=== PATIENT | male | born 1940 | race Caucasian/White ===

== ENCOUNTER 2017-09-14 15:34 | Inpatient (IN) ==
[2017-09-20] MEDS ORDERED: traZODone 50 MG TABLET PO PRN (18:26)
[2017-09-20] MEDS ORDERED: Acetaminophen 325 MG TABLET PO PRN (18:26)
[2017-09-20] MEDS ORDERED: *HR* Warfarin 2 MG TABLET PO ONE (19:00)
[2017-09-20] MEDS: Gabapentin 100 MG CAPSULE PO SCH (20:09)
[2017-09-20] MEDS: Cholecalciferol (D-3) 1,000 UNIT TABLET PO SCH (20:09)
[2017-09-20] MEDS: Ipratropium/Albuterol Neb 3 ML IH SCH ×2 (20:09→23:28)
[2017-09-20] MEDS: sulfaSALAzine 500 MG TABLET PO SCH (20:09)
[2017-09-20] MEDS: Furosemide 40 MG TABLET PO SCH (20:21)
[2017-09-21] MEDS: Ipratropium/Albuterol Neb 3 ML IH SCH ×4 (03:08→17:25)
[2017-09-21 05:54] LABS: Basophils % 0.1 %; Eosinophils # 0.1 K/mcL (0.0-0.6); Eosinophils % 1.1 %; Hematocrit 41.6 % (37.5-50.1); Hemoglobin 13.2 g/dL (12.9-16.9); Immature Granulocytes % 0.8 % (0-4); Lymphocytes # 1.4 K/mcL (0.6-4.6); Lymphocytes % 13.7 %; Mean Corpuscular HGB Conc 31.7 g/dL (31.6-35.5); Mean Corpuscular Hemoglobin 30.1 pg (28.0-33.3); Mean Platelet Volume 9.5 fL (9.4-12.4); Monocytes # 1.2 K/mcL (0.0-1.3); Monocytes % 11.3 %; Neutrophils # 7.5 K/mcL (1.6-8.9); Nucleated Red Blood Cells 0.2 /100 WBC (0); Platelet Count 139 K/mcL (140-400); Red Blood Count 4.38 M/mcL (4.19-5.50); Red Cell Distribution Width 20.1 % (11.5-14.5)
[2017-09-21 06:01] LABS: INR 2.5; Prothrombin Time 28.5 Seconds (9.4-12.1)
[2017-09-21 06:04] LABS: Activated Partial Thrombo Time 36.2 Seconds (26.0-36.0)
[2017-09-21 06:11] LABS: Alanine Aminotransferase 29 Units/L (7-52); Albumin 2.7 g/dL (3.5-5.7); Albumin/Globulin Ratio 1.1 (1.1-2.2); Alkaline Phosphatase 91 Units/L (34-104); Aspartate Amino Transferase 28 Units/L (13-39); BUN/Creatinine Ratio 27 (6-26); Blood Urea Nitrogen 34 mg/dL (8-23); Calcium 8.2 mg/dL (8.6-10.3); Carbon Dioxide 37 mEq/L (23-29); Chloride 98 mEq/L (98-107); Globulin 2.5 g/dL (2.4-3.5); Glucose 115 mg/dL (70-105); Osmolality,Calculated 299 (280-300); Potassium 3.3 mEq/L (3.5-5.1); Sodium 140 mEq/L (136-145); Total Protein 5.2 g/dL (6.4-8.9); eGFR For Non-African Americans 57 (> 60)
[2017-09-21] MEDS: Multivit/Ca/Min/Fe/FA 1 TAB TABLET PO SCH (09:09)
[2017-09-21] MEDS: Vitamin B Complex/Vit C/Vit E 1 EACH TABLET PO SCH (09:09)
[2017-09-21] MEDS: Furosemide 40 MG TABLET PO SCH ×2 (09:09→17:12)
[2017-09-21] MEDS: Aspirin 81 MG TAB.CHEW PO SCH (09:09)
[2017-09-21] MEDS: sulfaSALAzine 500 MG TABLET PO SCH ×2 (09:09→21:27)
[2017-09-21] MEDS: Folic Acid 1 MG TABLET PO SCH (09:09)
[2017-09-21] MEDS: Cholecalciferol (D-3) 1,000 UNIT TABLET PO SCH (09:09)
[2017-09-21] MEDS: *HR* Amiodarone 200 MG TABLET PO SCH (09:09)
--- NOTE | 2017-09-21 15:01 | Internal Med History&Physical ---
Date of Encounter: 09/21/17 Time of Encounter: 14:59 Assessment and Plan (1) General weakness Current visit: Yes Status: Acute PT and OT to eval and treat. Will follow progress. Goal to return to home. (2) Atrial fibrillation with RVR Current visit: Yes Status: Chronic Rate and rhythm controlled. Continue Coumadin. Follow INR closely. Underwent recent cardioversion (3) CHF (congestive heart failure) Current visit: Yes Status: Suspected Currently stable. Monitor for decompensation. Continue current medication. Qualifiers: Heart failure type: combined systolic and diastolic Heart failure chronicity: acute on chronic Qualified Code(s): I50.43 - Acute on chronic combined systolic (congestive) and diastolic (congestive) heart failure (4) DVT prophylaxis Current visit: Yes Status: Acute Continue Coumadin. (5) HTN (hypertension) Current visit: Yes Status: Chronic Stable with current medication. Monitor blood pressure. Qualifiers: Hypertension type: unspecified Qualified Code(s): I10 - Essential (primary ) hypertension (6) COPD (chronic obstructive pulmonary disease) Current visit: Yes Status: Chronic Continue inhaled meds. Continue oxygen. Will try to wean down to 2 L at hs. Monitor O2 sat. Qualifiers: COPD type: unspecified COPD Qualified Code(s): J44.9 - Chronic obstructive pulmonary disease, unspecified (7) Chronic venous stasis dermatitis of both lower extremities Current visit: Yes Status: Chronic monitor Internal Medicine - H&P: HPI Admitted From: Hospital to Hospital Transfer Plans for Post Hospital Care: Home History of present illness: Mr. Pickens is a 77 year old male admitted to rehab for general weakness after being hospitalized at [facility]. Presenting their to the emergency room of progressing weakness in shortness of breath. Had swelling of scrotum and lower legs. Past medical history includes COPD, chronic respiratory failure , coronary artery disease, atrial fibrillation with RVR, renal disease, rheumatoid arthritis, CHF and AAA. Ejection fraction as of October 2016 was 55%. Uses supplemental oxygen occasionally at home at 4 L per minute. Has had recent falls over the past few months. Currently resting in bed but participated with therapy earlier and became shortness of breath with exertion. O2 sats in the upper 80%. Did recover with rest. Denies chest pain, shortness of breath at rest, fever, chills, nausea, vomiting or diarrhea. Was treated recently for pneumonia with 70course of Rocephin and doxycycline. Past Med Surg Social Fam HX - Past Medical History Medical history: aortic aneurysm, arthritis, CHF, COPD, coronary artery disease , RA, renal disease Additional medical history: hydrocele Psychiatric history: no psych history - Past Surgical History Surgical History: non-contributory Additional surgical history: AAA repair - Social History Smoking Status: Former smoker Smokeless Tobacco Status: No Alcohol use: none Drug use: none - Family History Father Family Member Ethnicity: Non- Living Status: Hx Family Endocrine Disorder: Yes (DM) Mother Family Member Ethnicity: Non- Living Status: Hx Family Endocrine Disorder: Yes (DM) Brother Family Member Ethnicity: Non- Living Status: Still Living Sister Family Member Ethnicity: Non- Living Status: Still Living Son Adopted: No Family Member Ethnicity: Non- Living Status: Still Living Hx Family Cardiac Disorders: No Hx Family Respiratory Disorders: No Hx Family Cancer: Yes Hx Family GI Disorders: No Hx Family Endocrine Disorder: No Hx Family Neuromuscular Disorders: No Hx Family Neurologic Disorders: No Hx Family HEENT Disorders: No Hx Family Autoimmune Disorders: No Internal Medicine - H&P: Meds Aspirin 81 mg PO DAILY #0 03/08/17 [History] Calcium Carbonate [Calcium] 600 mg PO DAILY 03/08/17 [History] Cholecalciferol (D-3) [Vitamin D] 5,000 unit PO SA #0 03/08/17 [History] Ferrous Sulfate 325 mg PO DAILY 03/08/17 [History] Folic Acid 1 mg PO DAILY 03/08/17 [History] Methotrexate [Otrexup] 7.5 mg PO WE 03/08/17 [History] Mv-Mn/FA/Vit K/Lycop/Lut/Coq10 [Daily Multivitamin Capsule] 1 tab PO DAILY #0 [History] Vitamin B Complex [B Complex] 1 tab PO DAILY #0 03/08/17 [History] Warfarin [Coumadin] 1 mg PO TUSA #0 03/08/17 [History] sulfaSALAzine [Sulfasalazine] 500 mg PO BID tablet 03/09/17 [Rx] Melatonin [Melatin] 9 mg PO HS PRN 06/02/17 [History] Warfarin [Coumadin] 2 mg PO SUMOWETHFR 06/02/17 [History] traZODone [TraZODone] 50 - 100 mg PO HS PRN 06/02/17 [History] Acetaminophen [Tylenol] 650 mg PO Q6HR PRN tablet 06/04/17 [Rx] GuaiFENesin ER [Mucinex] 600 mg PO BID PRN tbbp.12hr 06/04/17 [Rx] Ipratropium/Albuterol Neb [Duoneb] 3 ml IH [id number] inhsol 06/04/17 [Rx] Amiodarone [Cordarone] 200 mg PO DAILY 09/11/17 [History] Atorvastatin [Lipitor] 40 mg PO HS 09/11/17 [History] Furosemide [Lasix] 40 mg PO BID 09/11/17 [History] Gabapentin [Neurontin] 200 mg PO HS 09/11/17 [History] Potassium Chloride [K-Tab ER] 40 meq PO BID 09/11/17 [History] Metoprolol Tartrate 75 mg PO BID 30 Days #60 tablet 09/20/17 [Rx] 3 Allergy/AdvReac Type Severity Reaction Status Date / Time sulfamethoxazole AdvReac Itching Verified 09/11/17 11:35 [From Bactrim] trimethoprim [From Bactrim] AdvReac Itching Verified 09/11/17 11:35 All Systems PM: A 10-system review of systems was performed and is negative for pertinent findings except as documented above in the HPI. - Constitutional Constitutional: no chills, no fever(s), no night sweats - EENT Eyes: no change in vision, no discharge, no pain, no photophobia Ears: no ear discharge, no ear pain, no tinnitus Nose, mouth and throat: no dysphagia, no nasal discharge, no neck pain, no sore throat - Cardiovascular Cardiovascular ROS IM: no chest pain, no diaphoresis, no dyspnea, no lightheadedness, no palpitations, no syncope - Respiratory Respiratory: no cough, no dyspnea, no wheezing, no excessive phlegm production - Gastrointestinal Gastrointestinal: no abdominal pain, no diarrhea, no hematemesis, no hematochezia, no melena, no nausea, no vomiting - Musculoskeletal Musculoskeletal ROS IM: no numbness, no tingling - Integumentary Integumentary IM: no rash, no unusual bruising - Neurological Neurological ROS: no confusion, no convulsions, no focal weakness, no numbness, no tingling, no tremor(s) - Hematologic/Lymphatic Hematologic/Lymphatic: no easy bruising - Constitutional Vitals: Temp Pulse Resp BP Pulse Ox 98.4 F 76 16 135/92 91 09/21/17 12:13 09/21/17 12:13 09/21/17 12:13 09/21/17 12:13 09/21/17 07:00 General appearance: Present: cooperative, A&O X 3, pleasant, obese, answers questions appropriately - Head Head exam: Present: atraumatic, normocephalic - Eye Eye exam: Present: PERRL, conjuntiva pink, sclera anicteric Pupils: Present: PERRL - Neck Neck exam general surgery: Present: supple, trachea midline. Absent: lymphadenopathy - Respiratory Respiratory exam: Present: CTAB. Absent: accessory muscle use, rales, rhonchi, wheezes - Cardiovascular Cardiovascular exam: Present: RRR, +S1, +S2, systolic murmur. Absent: diastolic murmur, gallop, rubs - GI/Abdominal GI/Abdominal exam: Present: normal bowel sounds, soft, no peritoneal signs. Absent: distended, tenderness - Extremities Exam Extremities exam: Present: warm, radial pulses palpable and symmetrical. Absent : calf tenderness, cyanotic, pedal edema Additional comments: discolored purplish and dry. - Neurological Exam Neurological exam: Present: CN II-XII intact, oriented X3, no focal deficits. Absent: pronater drift, facial droop, speech deficit - Skin Skin exam: Present: dry, intact Internal Med - H&P Results - Labs CBC & Chem 7: 09/21/17 04:55 09/21/17 04:55 Labs: Short CBC 09/21/17 Range/Units 04:55 WBC 10.3 (4.3-11.1) K/mcL Hgb 13.2 (12.9-16.9) g/dL Hct 41.6 (37.5-50.1) % Plt Count 139 L (140-400) K/mcL Neutrophils # 7.5 (1.6-8.9) K/mcL BMP 09/21/17 04:55 Sodium 140 Potassium 3.3 L Chloride 98 Carbon Dioxide 37 H BUN 34 H Creatinine 1.24 Glucose 115 H Calcium 8.2 L Liver Function 09/21/17 Range/Units 04:55 Total Bilirubin 1.0 (0.3-1.0) mg/dL AST 28 (13-39) Units/L ALT 29 (7-52) Units/L Alkaline Phosphatase 91 (34-104) Units/L Albumin 2.7 L (3.5-5.7) g/dL
[2017-09-21] MEDS ORDERED: Warfarin perPT PO PRN (18:00)
[2017-09-21] MEDS ORDERED: *HR* Warfarin 1 MG TABLET PO ONE (18:00)
[2017-09-21] MEDS: Melatonin 3 MG TABLET PO PRN (21:25)
[2017-09-21] MEDS: Gabapentin 100 MG CAPSULE PO SCH (21:28)
[2017-09-22 06:50] LABS: INR 2.5; Prothrombin Time 28.6 Seconds (9.4-12.1)
[2017-09-22] MEDS: sulfaSALAzine 500 MG TABLET PO SCH ×2 (09:36→20:09)
[2017-09-22] MEDS: Vitamin B Complex/Vit C/Vit E 1 EACH TABLET PO SCH (09:36)
[2017-09-22] MEDS: *HR* Amiodarone 200 MG TABLET PO SCH (09:36)
[2017-09-22] MEDS: Aspirin 81 MG TAB.CHEW PO SCH (09:36)
[2017-09-22] MEDS: Folic Acid 1 MG TABLET PO SCH (09:37)
[2017-09-22] MEDS: Cholecalciferol (D-3) 1,000 UNIT TABLET PO SCH (09:37)
[2017-09-22] MEDS: Furosemide 40 MG TABLET PO SCH ×2 (09:37→17:25)
[2017-09-22] MEDS: Multivit/Ca/Min/Fe/FA 1 TAB TABLET PO SCH (09:37)
--- NOTE | 2017-09-22 15:08 | Internal Med Progress Note ---
Date of Encounter: 09/22/17 Time of Encounter: 15:06 - Assessment and plan (1) General weakness Current Visit: Yes Status: Acute Assessment and plan: Continued general weakness. States that therapy has been progressing well. No acute issues. (2) HTN (hypertension) Current Visit: Yes Status: Chronic Assessment and plan: No acute issues. VSS. Continue on current meds. Qualifiers: Hypertension type: unspecified Qualified Code(s): I10 - Essential (primary ) hypertension (3) Paroxysmal A-fib Current Visit: No Status: Chronic Assessment and plan: No acute issues. HR remains irreg with controlled rate <100. Continue on current meds. (4) CAD (coronary artery disease) Current Visit: No Status: Chronic Assessment and plan: Denies any chest palpitations or chest discomforts. Continue on current meds. Qualifiers: Coronary Disease-Associated Artery/Lesion type: [place] artery [place] vs. transplanted heart: [place] heart Associated angina: angina presence unspecified Qualified Code(s): I25.10 - Atherosclerotic heart disease of [place] coronary artery without angina pectoris (5) COPD with acute exacerbation Current Visit: No Status: Chronic Assessment and plan: No acute issues. Lungs are CTA, but diminished bases. No wheezes. Denies dyspnea or prod cough. Continue with therapy and current meds. (6) Acute on chronic systolic CHF (congestive heart failure) Current Visit: Yes Status: Acute Assessment and plan: No acute issues. Continued generalized weakness. Denies any chest discomforts or dyspnea. Continued on current meds. - Time Spent With Patient less than 15 minutes - Subjective Interval history: Patient denies any discomforts or dyspnea. States that PT/OT has been progressing well. States no BM in 3 days. Denies any abdominal cramping or urge. - Constitutional Vitals: Temp Pulse Resp BP Pulse Ox 98.2 F 61 22 94/57 90 09/22/17 06:51 09/22/17 06:51 09/22/17 06:51 09/22/17 09:00 09/22/17 09:00 General appearance: Present: cooperative, A&O X 3, pleasant, obese, answers questions appropriately - Head Head exam: Present: atraumatic, normocephalic - Eye Eye exam: Present: PERRL, conjuntiva pink, sclera anicteric Pupils: Present: PERRL - Neck Neck exam general surgery: Present: supple, trachea midline. Absent: lymphadenopathy - Respiratory Respiratory exam: Present: CTAB. Absent: accessory muscle use, rales, rhonchi, wheezes Additional comments: CTA, but diminished bases. No prod cough. RR effort is relaxed. - Cardiovascular Cardiovascular exam: Present: RRR, +S1, +S2. Absent: diastolic murmur, gallop, rubs, systolic murmur - GI/Abdominal GI/Abdominal exam: Present: normal bowel sounds, soft, no peritoneal signs. Absent: distended, tenderness - Extremities Exam Extremities exam: Present: warm, radial pulses palpable and symmetrical. Absent : calf tenderness, cyanotic, pedal edema - Neurological Exam Neurological exam: Present: CN II-XII intact, oriented X3, no focal deficits. Absent: pronater drift, facial droop, speech deficit - Skin Skin exam: Present: dry, intact Internal Medicine: Result - Labs CBC & Chem 7: 09/21/17 04:55 09/21/17 04:55 - ABG Interpretation ABG results: PT/INR, D-dimer PT 28.6 Seconds (9.4-12.1) H 09/22/17 06:35 Consult Discharge Plan - Plan Referrals: Je Dutton MD [Primary Care Provider] -
--- NOTE | 2017-09-22 17:36 | Physcial Medicine-Consult Note ---
Date of Encounter: 09/22/17 Time of Encounter: 17:05 Physical Medicine - AP (1) Physical deconditioning Status: Acute Assessment and plan: Getting off to a good start in therapies. Continue rehab. Discussed compression hose. He has them at home but cannot don or doff them Code(s): R53.81 - Other malaise SNOMED Code(s): 44159862017512 Physical Medicine - HPI - Data of Consult Requesting Physician: Rex Ludwig MD Primary Care Provider: Je Dutton MD - Consult Narrative History of present illness: Mr. Pickens is a 77 year old RH male admitted to rehab for general weakness after being hospitalized at [facility]. Presenting their to the emergency room of progressing weakness in shortness of breath. Had swelling of scrotum and lower legs. Past medical history includes COPD, chronic respiratory failure, coronary artery disease, atrial fibrillation with RVR, renal disease, rheumatoid arthritis, CHF and AAA. Ejection fraction as of October 2016 was 55%. Uses supplemental oxygen occasionally at home at 4 L per minute. Has had recent falls over the past few months. Currently resting in bed but participated with therapy earlier and became shortness of breath with exertion. O2 sats in the upper 80%. Was treated recently for pneumonia with 70course of Rocephin and doxycycline. CC: Rex Ludwig MD Past Med Surg Social Fam HX - Past Medical History Medical history: aortic aneurysm, arthritis, CHF, COPD, coronary artery disease , RA, renal disease Additional medical history: hydrocele Psychiatric history: no psych history - Past Surgical History Surgical History: non-contributory Additional surgical history: AAA repair - Social History Smoking Status: Former smoker Smokeless Tobacco Status: No Alcohol use: none Drug use: none - Family History Father Family Member Ethnicity: Non- Living Status: Hx Family Endocrine Disorder: Yes (DM) Mother Family Member Ethnicity: Non- Living Status: Hx Family Endocrine Disorder: Yes (DM) Brother Family Member Ethnicity: Non- Living Status: Still Living Sister Family Member Ethnicity: Non- Living Status: Still Living Son Adopted: No Family Member Ethnicity: Non- Living Status: Still Living Hx Family Cardiac Disorders: No Hx Family Respiratory Disorders: No Hx Family Cancer: Yes Hx Family GI Disorders: No Hx Family Endocrine Disorder: No Hx Family Neuromuscular Disorders: No Hx Family Neurologic Disorders: No Hx Family HEENT Disorders: No Hx Family Autoimmune Disorders: No Medications and Allergies Aspirin 81 mg PO DAILY #0 03/08/17 [History] Calcium Carbonate [Calcium] 600 mg PO DAILY 03/08/17 [History] Cholecalciferol (D-3) [Vitamin D] 5,000 unit PO SA #0 03/08/17 [History] Ferrous Sulfate 325 mg PO DAILY 03/08/17 [History] Folic Acid 1 mg PO DAILY 03/08/17 [History] Methotrexate [Otrexup] 7.5 mg PO WE 03/08/17 [History] Mv-Mn/FA/Vit K/Lycop/Lut/Coq10 [Daily Multivitamin Capsule] 1 tab PO DAILY #0 [History] Vitamin B Complex [B Complex] 1 tab PO DAILY #0 03/08/17 [History] Warfarin [Coumadin] 1 mg PO TUSA #0 03/08/17 [History] sulfaSALAzine [Sulfasalazine] 500 mg PO BID tablet 03/09/17 [Rx] Melatonin [Melatin] 9 mg PO HS PRN 06/02/17 [History] Warfarin [Coumadin] 2 mg PO SUMOWETHFR 06/02/17 [History] traZODone [TraZODone] 50 - 100 mg PO HS PRN 06/02/17 [History] Acetaminophen [Tylenol] 650 mg PO Q6HR PRN tablet 06/04/17 [Rx] GuaiFENesin ER [Mucinex] 600 mg PO BID PRN tbbp.12hr 06/04/17 [Rx] Ipratropium/Albuterol Neb [Duoneb] 3 ml IH [id number] inhsol 06/04/17 [Rx] Amiodarone [Cordarone] 200 mg PO DAILY 09/11/17 [History] Atorvastatin [Lipitor] 40 mg PO HS 09/11/17 [History] Furosemide [Lasix] 40 mg PO BID 09/11/17 [History] Gabapentin [Neurontin] 200 mg PO HS 09/11/17 [History] Potassium Chloride [K-Tab ER] 40 meq PO BID 09/11/17 [History] Metoprolol Tartrate 75 mg PO BID 30 Days #60 tablet 09/20/17 [Rx] 3 Allergy/AdvReac Type Severity Reaction Status Date / Time sulfamethoxazole AdvReac Itching Verified 09/11/17 11:35 [From Bactrim] trimethoprim [From Bactrim] AdvReac Itching Verified 09/11/17 11:35 All systems: reviewed and no additional remarkable complaints except as stated Physical Medicine - Exam - Constitutional Vitals: Temp Pulse Resp BP Pulse Ox 98.2 F 61 22 94/57 90 09/22/17 06:51 09/22/17 06:51 09/22/17 06:51 09/22/17 09:00 09/22/17 09:00 General appearance: cooperative, no acute distress, obese - Head Head exam: Present: atraumatic, normocephalic - Eye Eye exam: Present: EOMI - ENT ENT exam: Present: mucous membranes moist - Neck Neck exam: Present: full ROM - Respiratory Respiratory exam: Present: decreased breath sounds, wheezes - Cardiovascular Cardiovascular exam: Present: irregular rhythm - GI/Abdominal GI/Abdominal exam: Present: normal bowel sounds, soft - Extremities Exam Extremities exam: Present: pedal edema Additional comments: 2-3+ edema in BLEs. Strength 4/5 RUE and BLEs. 4-/5 LUE. Stasis dermatitis. - Neurological Exam Neurological exam: Present: alert, CN II-XII intact, oriented X3, reflexes normal, no focal deficits - Psychiatric Psychiatric exam: Present: normal affect, normal mood - Skin Skin exam: Present: dry, intact Physical Medicine - Results - Labs CBC & Chem 7: 09/21/17 04:55 09/21/17 04:55 Labs: Hypokalemia, Thrombocytopenia. Consult Discharge Plan - Plan Referrals: Je Dutton MD [Primary Care Provider] -
[2017-09-22] MEDS ORDERED: *HR* Warfarin 2 MG TABLET PO ONE (18:00)
[2017-09-22] MEDS: Gabapentin 100 MG CAPSULE PO SCH (20:09)
[2017-09-23 05:31] LABS: INR 2.4; Prothrombin Time 27.6 Seconds (9.4-12.1)
[2017-09-23 05:45] LABS: BUN/Creatinine Ratio 22 (6-26); Blood Urea Nitrogen 27 mg/dL (8-23); Calcium 7.9 mg/dL (8.6-10.3); Carbon Dioxide 37 mEq/L (23-29); Chloride 97 mEq/L (98-107); Glucose 132 mg/dL (70-105); Magnesium 1.6 mg/dL (1.6-2.6); Osmolality,Calculated 293 (280-300); Potassium 3.2 mEq/L (3.5-5.1); Sodium 138 mEq/L (136-145); eGFR For Non-African Americans 58 (> 60)
--- NOTE | 2017-09-23 08:20 | Internal Med Progress Note ---
Date of Encounter: 09/23/17 Time of Encounter: 08:18 - Assessment and plan (1) Acute on chronic systolic CHF (congestive heart failure) Current Visit: Yes Status: Acute Assessment and plan: Breathing is his baseline No orthopnea stable On meds and seems to be improving . K levels some what low give K supplement few times (2) HTN (hypertension) Current Visit: Yes Status: Chronic Assessment and plan: stable continue present meds Qualifiers: Hypertension type: essential hypertension Qualified Code(s): I10 - Essential (primary) hypertension (3) Paroxysmal A-fib Current Visit: No Status: Chronic Assessment and plan: Heart rate is s table , INR is s table no new change continue to monitor no bleeding. H/H is stable . On Amiodrone (4) Rheumatoid arthritis Current Visit: No Status: Chronic Assessment and plan: Mild deviation of fingers some swelling but chronic in nature no apparent deformities to obstruct his normal functions . Overall pain is s table morning stiffness is minimal. Continue to monitor Qualifiers: Rheumatoid arthritis location: multiple sites Rheumatoid factor presence: unspecified presence Qualified Code(s): M06.9 - Rheumatoid arthritis, unspecified - Subjective Interval history: Cross coverage No acute issues No orthopnea , able to walk with help and seems to be getting improved She has some cough and productive sputum .no fever or chills overall he feels well and is getting better no bleeding or blood in stool or urine - Constitutional Vitals: Temp Pulse Resp BP Pulse Ox 98.2 F 72 15 104/58 89 09/23/17 07:21 09/23/17 07:21 09/23/17 07:21 09/23/17 07:21 09/23/17 07:21 General appearance: Present: cooperative, A&O X 3, pleasant, obese, answers questions appropriately - Head Head exam: Present: atraumatic - Eye Eye exam: Present: EOMI, PERRL Pupils: Present: PERRL - Neck Neck exam general surgery: Present: supple. Absent: tenderness, nuchal rigidity - Respiratory Respiratory exam: Present: rhonchi, wheezes. Absent: chest wall tenderness, prolonged expiratory phase, tachypnea Additional comments: rhonci and wheeze noted right middle lung area otherwise lungs clear - Cardiovascular Cardiovascular exam: Present: RRR, +S1, +S2, systolic murmur. Absent: irregular rhythm, JVD - GI/Abdominal GI/Abdominal exam: Present: normal bowel sounds, soft. Absent: guarding, rebound, rigid, tenderness - Extremities Exam Extremities exam: Present: pedal edema. Absent: tenderness, warm Additional comments: change in skin coloration due to chronic edema +1 pitting B - Neurological Exam Neurological exam: Present: CN II-XII intact, oriented X3, no focal deficits, strengths equal and symetr throughout. Absent: facial droop, speech deficit Internal Medicine: Result - Labs CBC & Chem 7: 09/21/17 04:55 09/23/17 05:15 Labs: BMP 09/23/17 05:15 Sodium 138 Potassium 3.2 L Chloride 97 L Carbon Dioxide 37 H BUN 27 H Creatinine 1.21 Glucose 132 H Calcium 7.9 L - ABG Interpretation ABG results: PT/INR, D-dimer PT 27.6 Seconds (9.4-12.1) H 09/23/17 05:15 Consult Discharge Plan - Plan Referrals: Je Dutton MD [Primary Care Provider] -
[2017-09-23] MEDS: Vitamin B Complex/Vit C/Vit E 1 EACH TABLET PO SCH (09:24)
[2017-09-23] MEDS: Potassium Citrate 10 MEQ TABLET.ER PO SCH ×3 (09:25→20:24)
[2017-09-23] MEDS: Multivit/Ca/Min/Fe/FA 1 TAB TABLET PO SCH (09:25)
[2017-09-23] MEDS: Folic Acid 1 MG TABLET PO SCH (09:25)
[2017-09-23] MEDS: Furosemide 40 MG TABLET PO SCH ×2 (09:25→17:54)
[2017-09-23] MEDS: sulfaSALAzine 500 MG TABLET PO SCH ×2 (09:25→20:24)
[2017-09-23] MEDS: Cholecalciferol (D-3) 1,000 UNIT TABLET PO SCH (09:25)
[2017-09-23] MEDS: Aspirin 81 MG TAB.CHEW PO SCH (09:25)
[2017-09-23] MEDS: *HR* Amiodarone 200 MG TABLET PO SCH (09:26)
[2017-09-23] MEDS ORDERED: *HR* Warfarin 2 MG TABLET PO ONE (18:00)
[2017-09-23] MEDS: Gabapentin 100 MG CAPSULE PO SCH (20:23)
[2017-09-24] MEDS ORDERED: MOM Conc 10 ML UD.LIQ PO PRN (03:58)
[2017-09-24] MEDS ORDERED: Bisacodyl 10 MG RECTAL SUPPOSITORY RC PRN (03:59)
[2017-09-24 05:15] LABS: INR 2.6; Prothrombin Time 29.7 Seconds (9.4-12.1)
--- NOTE | 2017-09-24 08:14 | Internal Med Progress Note ---
Date of Encounter: 09/24/17 Time of Encounter: 08:11 - Assessment and plan (1) Acute on chronic systolic CHF (congestive heart failure) Current Visit: Yes Status: Acute Assessment and plan: Breathing is his baseline No orthopnea stable On meds and seems to be improving . laying flat stable s (2) HTN (hypertension) Current Visit: Yes Status: Chronic Assessment and plan: stable continue present meds no new change Qualifiers: Hypertension type: essential hypertension Qualified Code(s): I10 - Essential (primary) hypertension (3) Paroxysmal A-fib Current Visit: No Status: Chronic Assessment and plan: Heart rate is s table, reguar INR is stable no new change continue to monitor no bleeding. H/H is stable . On anti arrhythmias. (4) Rheumatoid arthritis Current Visit: No Status: Chronic Assessment and plan: Hx of RA stable no new change Qualifiers: Rheumatoid arthritis location: multiple sites Rheumatoid factor presence: unspecified presence Qualified Code(s): M06.9 - Rheumatoid arthritis, unspecified - Subjective Interval history: Cross coverage No acute issues No orthopnea ,Sleeping laying almost flat overall he feel well NHe had good bowel movement. No fever or chills overall he feels well No bleeding - Constitutional Vitals: Temp Pulse Resp BP Pulse Ox 98.9 F 73 18 123/72 100 09/24/17 07:20 09/24/17 07:20 09/24/17 07:20 09/24/17 07:20 09/24/17 07:20 General appearance: Present: cooperative, A&O X 3, pleasant, obese, answers questions appropriately - Head Head exam: Present: atraumatic - Eye Eye exam: Present: EOMI, PERRL. Absent: scleral icterus, conjuntiva pink - Neck Neck exam general surgery: Present: supple. Absent: tenderness, nuchal rigidity - Respiratory Respiratory exam: Present: CTAB. Absent: respiratory distress, rhonchi, stridor , wheezes, tachypnea Additional comments: mild crackles cleared with cough today - Cardiovascular Cardiovascular exam: Present: RRR, +S1, +S3, systolic murmur. Absent: distant heart sounds, JVD Additional comments: soft systolic mummer at apex no new change - GI/Abdominal GI/Abdominal exam: Present: normal bowel sounds. Absent: guarding, rebound, rigid, tenderness, no peritoneal signs - Extremities Exam Extremities exam: Absent: pedal edema, tenderness Additional comments: change in coloration due to chronic edema legs - Neurological Exam Neurological exam: Present: alert, CN II-XII intact, oriented X3, no focal deficits, strengths equal and symetr throughout. Absent: facial droop, speech deficit Internal Medicine: Result - Labs CBC & Chem 7: 09/21/17 04:55 09/23/17 05:15 - ABG Interpretation ABG results: PT/INR, D-dimer PT 29.7 Seconds (9.4-12.1) H 09/24/17 05:00 Consult Discharge Plan - Plan Referrals: Je Dutton MD [Primary Care Provider] -
[2017-09-24] MEDS: Multivit/Ca/Min/Fe/FA 1 TAB TABLET PO SCH (09:11)
[2017-09-24] MEDS: Folic Acid 1 MG TABLET PO SCH (09:11)
[2017-09-24] MEDS: sulfaSALAzine 500 MG TABLET PO SCH ×2 (09:11→21:00)
[2017-09-24] MEDS: Cholecalciferol (D-3) 1,000 UNIT TABLET PO SCH (09:11)
[2017-09-24] MEDS: *HR* Amiodarone 200 MG TABLET PO SCH (09:11)
[2017-09-24] MEDS: Aspirin 81 MG TAB.CHEW PO SCH (09:12)
[2017-09-24] MEDS: Furosemide 40 MG TABLET PO SCH ×2 (09:12→16:30)
[2017-09-24] MEDS: Vitamin B Complex/Vit C/Vit E 1 EACH TABLET PO SCH (09:12)
[2017-09-24] MEDS: Ipratropium/Albuterol Neb 3 ML IH PRN (16:30)
[2017-09-24] MEDS: *HR* Warfarin 2 MG TABLET PO SCH (16:30)
[2017-09-24] MEDS: Gabapentin 100 MG CAPSULE PO SCH (20:59)
[2017-09-25 05:56] LABS: INR 2.6; Prothrombin Time 29.8 Seconds (9.4-12.1)
[2017-09-25 05:58] LABS: Basophils % 0.1 %; Eosinophils # 0.2 K/mcL (0.0-0.6); Eosinophils % 1.3 %; Hematocrit 42.3 % (37.5-50.1); Hemoglobin 13.3 g/dL (12.9-16.9); Immature Granulocytes % 0.6 % (0-4); Lymphocytes # 1.4 K/mcL (0.6-4.6); Lymphocytes % 9.8 %; Mean Corpuscular HGB Conc 31.4 g/dL (31.6-35.5); Mean Corpuscular Hemoglobin 29.6 pg (28.0-33.3); Mean Platelet Volume 9.2 fL (9.4-12.4); Monocytes # 1.5 K/mcL (0.0-1.3); Neutrophils # 10.8 K/mcL (1.6-8.9); Platelet Count 116 K/mcL (140-400); Red Cell Distribution Width 20.9 % (11.5-14.5); Segmented Neutrophils % 77.2 %
[2017-09-25 06:09] LABS: Alanine Aminotransferase 19 Units/L (7-52); Albumin 2.6 g/dL (3.5-5.7); Alkaline Phosphatase 79 Units/L (34-104); Aspartate Amino Transferase 23 Units/L (13-39); BUN/Creatinine Ratio 17 (6-26); Bilirubin,Total 1.3 mg/dL (0.3-1.0); Blood Urea Nitrogen 17 mg/dL (8-23); Calcium 8.1 mg/dL (8.6-10.3); Carbon Dioxide 37 mEq/L (23-29); Chloride 97 mEq/L (98-107); Globulin 2.6 g/dL (2.4-3.5); Glucose 106 mg/dL (70-105); Osmolality,Calculated 290 (280-300); Potassium 3.8 mEq/L (3.5-5.1); Sodium 139 mEq/L (136-145); Total Protein 5.2 g/dL (6.4-8.9); eGFR For Non-African Americans > 60 (> 60)
[2017-09-25] MEDS: Aspirin 81 MG TAB.CHEW PO SCH (09:57)
[2017-09-25] MEDS: Furosemide 40 MG TABLET PO SCH ×2 (09:57→18:32)
[2017-09-25] MEDS: *HR* Amiodarone 200 MG TABLET PO SCH (09:57)
[2017-09-25] MEDS: Cholecalciferol (D-3) 1,000 UNIT TABLET PO SCH (09:57)
[2017-09-25] MEDS: Vitamin B Complex/Vit C/Vit E 1 EACH TABLET PO SCH (09:57)
[2017-09-25] MEDS: sulfaSALAzine 500 MG TABLET PO SCH ×2 (09:57→22:12)
[2017-09-25] MEDS: Multivit/Ca/Min/Fe/FA 1 TAB TABLET PO SCH (09:57)
[2017-09-25] MEDS: Folic Acid 1 MG TABLET PO SCH (10:00)
--- NOTE | 2017-09-25 15:43 | Internal Med Progress Note ---
Date of Encounter: 09/25/17 Time of Encounter: 15:40 - Assessment and plan (1) General weakness Current Visit: Yes Status: Acute Assessment and plan: Continue PT and OT. Will follow progress. (2) Atrial fibrillation with RVR Current Visit: Yes Status: Chronic Assessment and plan: rate and rythm stable. continue current meds. (3) CHF (congestive heart failure) Current Visit: Yes Status: Suspected Assessment and plan: Continue Lasix. Monitor for decompensation. Edema is worsening. Unable to add more diuretic due to blood pressure 96/60. Qualifiers: Heart failure type: combined systolic and diastolic Heart failure chronicity: acute on chronic Qualified Code(s): I50.43 - Acute on chronic combined systolic (congestive) and diastolic (congestive) heart failure (4) HTN (hypertension) Current Visit: Yes Status: Chronic Assessment and plan: Controlled. Monitor blood pressure. Continue current meds. Qualifiers: Hypertension type: essential hypertension Qualified Code(s): I10 - Essential (primary) hypertension (5) COPD (chronic obstructive pulmonary disease) Current Visit: Yes Status: Chronic Assessment and plan: Stable. Continue oxygen as needed. O2 sats maintaining greater than 92%. Qualifiers: COPD type: unspecified COPD Qualified Code(s): J44.9 - Chronic obstructive pulmonary disease, unspecified - Time Spent With Patient less than 15 minutes - Subjective Interval history: Patient resting in bed. Refused therapy due to scrotal edema. States it is too painful to transfer and walk. This has been going on for some time, patient states for several years. Currently only 640 mg twice a day with blood pressure 96/60 this morning. States he is having trouble urinating due to all the edema. White blood cell count 14.0 this morning discussed ordering urinalysis. States last bowel movement was 2 days ago. Maintaining appetite. - Constitutional Vitals: Temp Pulse Resp BP Pulse Ox 98.9 F 78 18 96/60 96 09/25/17 07:06 09/25/17 07:06 09/25/17 07:06 09/25/17 07:06 09/25/17 07:06 General appearance: Present: cooperative, A&O X 3, pleasant, obese, answers questions appropriately - Head Head exam: Present: atraumatic, normocephalic - Eye Eye exam: Present: PERRL, conjuntiva pink, sclera anicteric Pupils: Present: PERRL - Neck Neck exam general surgery: Present: supple, trachea midline. Absent: lymphadenopathy - Respiratory Respiratory exam: Present: CTAB. Absent: accessory muscle use, rales, rhonchi, wheezes - Cardiovascular Cardiovascular exam: Present: RRR, +S1, +S2. Absent: diastolic murmur, gallop, rubs, systolic murmur - GI/Abdominal GI/Abdominal exam: Present: normal bowel sounds, soft, no peritoneal signs. Absent: distended, tenderness - Extremities Exam Extremities exam: Present: warm, radial pulses palpable and symmetrical. Absent : calf tenderness, cyanotic, pedal edema Additional comments: Bilateral lower extremities non-pitting edema. Scrotal edema - Neurological Exam Neurological exam: Present: CN II-XII intact, oriented X3, no focal deficits. Absent: pronater drift, facial droop, speech deficit - Skin Skin exam: Present: dry, intact Internal Medicine: Result - Labs CBC & Chem 7: 09/25/17 05:35 09/25/17 05:35 Labs: Short CBC 09/25/17 Range/Units 05:35 WBC 14.0 H (4.3-11.1) K/mcL Hgb 13.3 (12.9-16.9) g/dL Hct 42.3 (37.5-50.1) % Plt Count 116 L (140-400) K/mcL Neutrophils # 10.8 H (1.6-8.9) K/mcL BMP 09/25/17 05:35 Sodium 139 Potassium 3.8 Chloride 97 L Carbon Dioxide 37 H BUN 17 Creatinine 1.03 Glucose 106 H Calcium 8.1 L Liver Function 09/25/17 Range/Units 05:35 Total Bilirubin 1.3 H (0.3-1.0) mg/dL AST 23 (13-39) Units/L ALT 19 (7-52) Units/L Alkaline Phosphatase 79 (34-104) Units/L Albumin 2.6 L (3.5-5.7) g/dL - ABG Interpretation ABG results: PT/INR, D-dimer PT 29.8 Seconds (9.4-12.1) H 09/25/17 05:35 Consult Discharge Plan - Plan Referrals: Je Dutton MD [Primary Care Provider] -
[2017-09-25] MEDS: *HR* Warfarin 2 MG TABLET PO SCH (18:31)
[2017-09-25] MEDS: Gabapentin 100 MG CAPSULE PO SCH (22:12)
[2017-09-25] MEDS: Magnesium Oxide 400 MG TABLET PO SCH (22:12)
[2017-09-26 04:14] LABS: Bilirubin,Urine Negative (Negative); Blood,Urine Trace-intact (Negative); Clarity,Urine Slightly Cloudy (Clear); Glucose,Urine (UA) Normal (Normal); Ketones,Urine Negative (Negative); Leukocyte Esterase,Urine Negative (Negative); Nitrite,Urine Negative (Negative); Protein,Urine 30 mg/dL (Neg-Trace); Specific Gravity,Urine 1.015 (1.010-1.025)
[2017-09-26 04:15] LABS: Color,Urine Yellow (Yellow); RBC,Urine 0-3 per hpf (0-3)
[2017-09-26 06:14] LABS: INR 2.5; Prothrombin Time 28.4 Seconds (9.4-12.1)
--- NOTE | 2017-09-26 10:38 | Internal Med Progress Note ---
Date of Encounter: 09/26/17 Time of Encounter: 10:36 - Assessment and plan (1) General weakness Current Visit: Yes Status: Acute Assessment and plan: Continue PT and OT. Will follow progress. (2) Atrial fibrillation with RVR Current Visit: Yes Status: Chronic Assessment and plan: rate and rythm stable. continue current meds. on coumadin and metoprolol. (3) CHF (congestive heart failure) Current Visit: Yes Status: Chronic Assessment and plan: Continue Lasix. Monitor for decompensation. Edema is improving today. Qualifiers: Heart failure type: combined systolic and diastolic Heart failure chronicity: acute on chronic Qualified Code(s): I50.43 - Acute on chronic combined systolic (congestive) and diastolic (congestive) heart failure (4) HTN (hypertension) Current Visit: Yes Status: Chronic Assessment and plan: Controlled. Monitor blood pressure. Continue current meds. Qualifiers: Hypertension type: essential hypertension Qualified Code(s): I10 - Essential (primary) hypertension (5) COPD (chronic obstructive pulmonary disease) Current Visit: Yes Status: Chronic Assessment and plan: Stable. Continue oxygen as needed. O2 sats maintaining greater than 92%. Qualifiers: COPD type: unspecified COPD Qualified Code(s): J44.9 - Chronic obstructive pulmonary disease, unspecified - Time Spent With Patient less than 15 minutes - Subjective Interval history: Patient ambulating with Walker in hallway with therapy. Short of breath with exertion maintaining O2 sats greater than 92%. Wearing oxygen per nasal cannula at 2 L. Denies pain. States that edema has improved from keeping his legs elevated yesterday. Denies chest pain, fever, chills, nausea, vomiting or diarrhea. - Constitutional Vitals: Temp Pulse Resp BP Pulse Ox 98.2 F 83 24 81/55 95 09/26/17 07:42 09/26/17 07:42 09/26/17 07:42 09/26/17 07:42 09/26/17 07:42 General appearance: Present: cooperative, A&O X 3, pleasant, obese, answers questions appropriately Exam: [place] with aids - Head Head exam: Present: atraumatic, normocephalic - Eye Eye exam: Present: PERRL, conjuntiva pink, sclera anicteric Pupils: Present: PERRL - Neck Neck exam general surgery: Present: supple, trachea midline. Absent: lymphadenopathy - Respiratory Respiratory exam: Present: CTAB. Absent: accessory muscle use, rales, rhonchi, wheezes - Cardiovascular Cardiovascular exam: Present: RRR, +S1, +S2. Absent: diastolic murmur, gallop, rubs, systolic murmur - GI/Abdominal GI/Abdominal exam: Present: normal bowel sounds, soft, no peritoneal signs. Absent: distended, tenderness - Extremities Exam Extremities exam: Present: warm, radial pulses palpable and symmetrical. Absent : calf tenderness, cyanotic, pedal edema - Neurological Exam Neurological exam: Present: CN II-XII intact, oriented X3, no focal deficits. Absent: pronater drift, facial droop, speech deficit - Skin Skin exam: Present: dry, intact Internal Medicine: Result - Labs CBC & Chem 7: 09/25/17 05:35 09/25/17 05:35 Labs: Urine 09/26/17 Range/Units 04:00 Urine Color Yellow (Yellow) Urine Clarity Slightly Cloudy A (Clear) Urine pH 7.0 (5.0-8.0) pH Units Ur Specific [place] 1.015 (1.010-1.025) Urine Protein 30 H (Neg-Trace) mg/dL Urine Glucose (UA) Normal (Normal) mg/dL - ABG Interpretation ABG results: PT/INR, D-dimer PT 28.4 Seconds (9.4-12.1) H 09/26/17 05:35 Consult Discharge Plan - Plan Referrals: Je Dutton MD [Primary Care Provider] -
[2017-09-26] MEDS: Aspirin 81 MG TAB.CHEW PO SCH (11:22)
[2017-09-26] MEDS: Multivit/Ca/Min/Fe/FA 1 TAB TABLET PO SCH (11:22)
[2017-09-26] MEDS: Magnesium Oxide 400 MG TABLET PO SCH ×2 (11:22→19:47)
[2017-09-26] MEDS: Furosemide 40 MG TABLET PO SCH ×2 (11:22→18:04)
[2017-09-26] MEDS: Folic Acid 1 MG TABLET PO SCH (11:22)
[2017-09-26] MEDS: Vitamin B Complex/Vit C/Vit E 1 EACH TABLET PO SCH (11:22)
[2017-09-26] MEDS: Cholecalciferol (D-3) 1,000 UNIT TABLET PO SCH (11:22)
[2017-09-26] MEDS: *HR* Amiodarone 200 MG TABLET PO SCH (11:22)
[2017-09-26] MEDS: sulfaSALAzine 500 MG TABLET PO SCH ×2 (11:22→19:47)
[2017-09-26] MEDS ORDERED: *HR* Warfarin 1 MG TABLET PO SCH (18:00)
[2017-09-26] MEDS: Melatonin 3 MG TABLET PO PRN (19:46)
[2017-09-26] MEDS: Gabapentin 100 MG CAPSULE PO SCH (19:47)
[2017-09-27 06:10] LABS: INR 2.6; Prothrombin Time 29.2 Seconds (9.4-12.1)
[2017-09-27] MEDS: sulfaSALAzine 500 MG TABLET PO SCH ×2 (08:32→20:22)
[2017-09-27] MEDS: Magnesium Oxide 400 MG TABLET PO SCH ×2 (08:32→20:21)
[2017-09-27] MEDS: Cholecalciferol (D-3) 1,000 UNIT TABLET PO SCH (08:33)
[2017-09-27] MEDS: Furosemide 40 MG TABLET PO SCH ×2 (08:33→17:56)
[2017-09-27] MEDS: Vitamin B Complex/Vit C/Vit E 1 EACH TABLET PO SCH (08:33)
[2017-09-27] MEDS: Aspirin 81 MG TAB.CHEW PO SCH (08:33)
[2017-09-27] MEDS: *HR* Amiodarone 200 MG TABLET PO SCH (08:33)
[2017-09-27] MEDS: Folic Acid 1 MG TABLET PO SCH (08:33)
[2017-09-27] MEDS: Multivit/Ca/Min/Fe/FA 1 TAB TABLET PO SCH (08:33)
--- NOTE | 2017-09-27 11:35 | Internal Med Progress Note ---
Date of Encounter: 09/27/17 Time of Encounter: 11:33 - Assessment and plan (1) General weakness Current Visit: Yes Status: Acute Assessment and plan: Improving. Continue PT and OT. Will follow progress. (2) Atrial fibrillation with RVR Current Visit: Yes Status: Chronic Assessment and plan: rate and rythm stable. continue current meds. on coumadin and metoprolol. (3) CHF (congestive heart failure) Current Visit: Yes Status: Chronic Assessment and plan: Continue Lasix. Monitor for decompensation. Edema is improving today. Qualifiers: Heart failure type: combined systolic and diastolic Heart failure chronicity: acute on chronic Qualified Code(s): I50.43 - Acute on chronic combined systolic (congestive) and diastolic (congestive) heart failure (4) HTN (hypertension) Current Visit: Yes Status: Chronic Assessment and plan: Controlled. Monitor blood pressure. Continue current meds. Qualifiers: Hypertension type: essential hypertension Qualified Code(s): I10 - Essential (primary) hypertension (5) COPD (chronic obstructive pulmonary disease) Current Visit: Yes Status: Chronic Assessment and plan: Stable. Continue oxygen as needed. O2 sats maintaining greater than 92%. Was on oxygen at home prior to admission Qualifiers: COPD type: unspecified COPD Qualified Code(s): J44.9 - Chronic obstructive pulmonary disease, unspecified - Time Spent With Patient less than 15 minutes - Subjective Interval history: Participating well with therapy. Patient ambulating with Walker in hallway with therapy. maintaining O2 sats greater than 94%. Wearing oxygen per nasal cannula at 2 L. Denies pain. Denies chest pain, shortness of breath, fever, chills, nausea, vomiting or diarrhea. - Constitutional Vitals: Temp Pulse Resp BP Pulse Ox 98.7 F 83 23 99/53 94 09/27/17 07:46 09/27/17 07:46 09/27/17 07:46 09/27/17 07:46 09/27/17 07:46 General appearance: Present: cooperative, A&O X 3, pleasant, obese, answers questions appropriately - Head Head exam: Present: atraumatic, normocephalic - Eye Eye exam: Present: PERRL, conjuntiva pink, sclera anicteric Pupils: Present: PERRL - Neck Neck exam general surgery: Present: supple, trachea midline. Absent: lymphadenopathy - Respiratory Respiratory exam: Present: CTAB. Absent: accessory muscle use, rales, rhonchi, wheezes - Cardiovascular Cardiovascular exam: Present: RRR, +S1, +S2. Absent: diastolic murmur, gallop, rubs, systolic murmur - GI/Abdominal GI/Abdominal exam: Present: normal bowel sounds, soft, no peritoneal signs. Absent: distended, tenderness - Extremities Exam Extremities exam: Present: warm, radial pulses palpable and symmetrical. Absent : calf tenderness, cyanotic, pedal edema Additional comments: Non-pitting pedal edema bilateral - Neurological Exam Neurological exam: Present: CN II-XII intact, oriented X3, no focal deficits. Absent: pronater drift, facial droop, speech deficit - Skin Skin exam: Present: dry, intact Internal Medicine: Result - Labs CBC & Chem 7: 09/25/17 05:35 09/25/17 05:35 - ABG Interpretation ABG results: PT/INR, D-dimer PT 29.2 Seconds (9.4-12.1) H 09/27/17 05:55 Consult Discharge Plan - Plan Referrals: Je Dutton MD [Primary Care Provider] -
[2017-09-27] MEDS: *HR* Warfarin 2 MG TABLET PO SCH (17:56)
[2017-09-27] MEDS: Gabapentin 100 MG CAPSULE PO SCH (20:22)
[2017-09-27] MEDS: Ipratropium/Albuterol Neb 3 ML IH PRN (22:16)
[2017-09-28 05:38] LABS: Basophils % 0.2 %; Eosinophils # 0.2 K/mcL (0.0-0.6); Eosinophils % 1.3 %; Hematocrit 40.5 % (37.5-50.1); Hemoglobin 12.9 g/dL (12.9-16.9); Immature Granulocytes % 0.5 % (0-4); Lymphocytes # 1.3 K/mcL (0.6-4.6); Lymphocytes % 11.8 %; Mean Corpuscular HGB Conc 31.9 g/dL (31.6-35.5); Mean Corpuscular Hemoglobin 29.3 pg (28.0-33.3); Mean Platelet Volume 9.6 fL (9.4-12.4); Monocytes # 1.2 K/mcL (0.0-1.3); Monocytes % 10.9 %; Neutrophils # 8.5 K/mcL (1.6-8.9); Platelet Count 158 K/mcL (140-400); Red Cell Distribution Width 20.8 % (11.5-14.5); Segmented Neutrophils % 75.3 %
[2017-09-28 05:45] LABS: INR 2.7; Prothrombin Time 29.9 Seconds (9.4-12.1)
[2017-09-28 05:56] LABS: BUN/Creatinine Ratio 14 (6-26); Blood Urea Nitrogen 18 mg/dL (8-23); Calcium 8.6 mg/dL (8.6-10.3); Carbon Dioxide 36 mEq/L (23-29); Chloride 95 mEq/L (98-107); Glucose 107 mg/dL (70-105); Magnesium 1.9 mg/dL (1.6-2.6); Osmolality,Calculated 286 (280-300); Potassium 3.9 mEq/L (3.5-5.1); Sodium 137 mEq/L (136-145); eGFR For Non-African Americans 55 (> 60)
[2017-09-28] MEDS ORDERED: metOLazone 5 MG TABLET PO ONE (07:55)
[2017-09-28 08:14] LABS: Troponin I 0.03 ng/mL (< 0.04)
[2017-09-28] MEDS: Aspirin 81 MG TAB.CHEW PO SCH (08:15)
[2017-09-28] MEDS: Cholecalciferol (D-3) 1,000 UNIT TABLET PO SCH (08:15)
[2017-09-28] MEDS: sulfaSALAzine 500 MG TABLET PO SCH (08:15)
[2017-09-28] MEDS: Magnesium Oxide 400 MG TABLET PO SCH (08:15)
[2017-09-28] MEDS: Folic Acid 1 MG TABLET PO SCH (08:15)
[2017-09-28] MEDS: *HR* Amiodarone 200 MG TABLET PO SCH (08:16)
[2017-09-28] MEDS: Multivit/Ca/Min/Fe/FA 1 TAB TABLET PO SCH (08:16)
[2017-09-28] MEDS: Vitamin B Complex/Vit C/Vit E 1 EACH TABLET PO SCH (08:16)
[2017-09-28 08:27] LABS: Thyroid Stimulating Hormone 1.616 mcIU/mL (0.340-5.600)
[2017-09-28 08:28] LABS: Alanine Aminotransferase 18 Units/L (7-52); Albumin 2.6 g/dL (3.5-5.7); Albumin/Globulin Ratio 1.1 (1.1-2.2); Alkaline Phosphatase 76 Units/L (34-104); Aspartate Amino Transferase 24 Units/L (13-39); BUN/Creatinine Ratio 14 (6-26); Bilirubin,Total 1.1 mg/dL (0.3-1.0); Blood Urea Nitrogen 18 mg/dL (8-23); Calcium 8.4 mg/dL (8.6-10.3); Carbon Dioxide 33 mEq/L (23-29); Chloride 96 mEq/L (98-107); Globulin 2.4 g/dL (2.4-3.5); Glucose 108 mg/dL (70-105); Osmolality,Calculated 284 (280-300); Potassium 3.9 mEq/L (3.5-5.1); Sodium 136 mEq/L (136-145); eGFR For Non-African Americans 55 (> 60)
[2017-09-28] MEDS ORDERED: metOLazone 5 MG TABLET PO SCH (09:00)
[2017-09-28] MEDS: Furosemide 40 MG TABLET PO SCH (09:28)
--- NOTE | 2017-09-28 11:11 | Discharge Summary ---
Orders not resulted at time of discharge: Pending orders 09/28/17 07:31 EKG [ECG 12 lead ECG] [ECG] Stat 09/29/17 04:00 Prothrombin Time INR [COAG] DAILY 09/30/17 04:00 Prothrombin Time INR [COAG] DAILY 10/01/17 04:00 Prothrombin Time INR [COAG] DAILY 10/02/17 04:00 CMP [Comprehensive Metabolic Panel] MO Complete Blood Count [HEME] MO Prothrombin Time INR [COAG] DAILY 10/03/17 04:00 Prothrombin Time INR [COAG] DAILY 10/04/17 04:00 Prothrombin Time INR [COAG] DAILY 10/05/17 04:00 Prothrombin Time INR [COAG] DAILY 10/06/17 04:00 Prothrombin Time INR [COAG] DAILY 10/07/17 04:00 Prothrombin Time INR [COAG] DAILY 10/08/17 04:00 Prothrombin Time INR [COAG] DAILY 10/09/17 04:00 CMP [Comprehensive Metabolic Panel] MO Prothrombin Time INR [COAG] DAILY 10/10/17 04:00 Prothrombin Time INR [COAG] DAILY 10/11/17 04:00 Prothrombin Time INR [COAG] DAILY 10/12/17 04:00 Prothrombin Time INR [COAG] DAILY 10/13/17 04:00 Prothrombin Time INR [COAG] DAILY 10/14/17 04:00 Prothrombin Time INR [COAG] DAILY 10/15/17 04:00 Prothrombin Time INR [COAG] DAILY 10/16/17 04:00 CMP [Comprehensive Metabolic Panel] MO 10/23/17 04:00 CMP [Comprehensive Metabolic Panel] MO 10/30/17 04:00 CMP [Comprehensive Metabolic Panel] MO 11/06/17 04:00 CMP [Comprehensive Metabolic Panel] MO 11/13/17 04:00 CMP [Comprehensive Metabolic Panel] MO 11/20/17 04:00 CMP [Comprehensive Metabolic Panel] MO 11/27/17 04:00 CMP [Comprehensive Metabolic Panel] MO Date of Encounter: 09/28/17 Time of Encounter: 11:08 - Discharge Diagnosis (1) General weakness Priority: Primary Status: Acute Comments: Continued generalized weakness. Pt has been refusing therapy on several occasions due to generalized weakness secondary to his CHF. Patient will continue therapy after re-evaluation for his CHF by Cardiology. (2) HTN (hypertension) Priority: Secondary Status: Chronic Comments: Patient continues to have intermittent hypotension, likely due to his afib with rate >110 bpm. Patient also has progressing CHF. Qualifiers: Hypertension type: essential hypertension Qualified Code(s): I10 - Essential (primary) hypertension (3) Paroxysmal A-fib Priority: Secondary Status: Chronic Comments: HR has been progressing in vent. rate over the last several days and currently has been sustained >110. Patient being transfered to [place] for cardiology eval. (4) CAD (coronary artery disease) Priority: Secondary Status: Chronic Qualifiers: Coronary Disease-Associated Artery/Lesion type: [place] artery [place] vs. transplanted heart: [place] heart Associated angina: angina presence unspecified Qualified Code(s): I25.10 - Atherosclerotic heart disease of [place] coronary artery without angina pectoris (5) COPD with acute exacerbation Priority: Secondary Status: Chronic (6) Acute on chronic systolic CHF (congestive heart failure) Priority: Secondary Status: Acute Comments: Currently patient has HR >110. EKG shows afib. CXR shows pulmonary vascular congestion and mild edema. Will send to [place] for eval by cardiology Hospital course: Mr. Pickens is a 77 year old male, who was admitted for deconditioning secondary to CHF. Patient was treated at [place] for CHF and atrial fibrillation with RVR by Cardiology. Patient was successfully cardioverted and was discharged in SR. Approx. two days ago it was noted that his HR was >100 bpm, but his VS remained WNL. Patient had moderate dependent edema with his legs having +2 bilateral edema and moderate scrotal edema. Patient has not been progressing well due to fatigue and dyspnea. Patient today was noted to have a low O2 sat at 86% while on 2L, but resp effort appeared relaxed while at rest and patient denied dyspnea. Noted fine posterior basilar rales. HR was >120 and an EKG showed Atrial Fib with vent rate 140 bpm. CXR obtained showed pulmonary vascular congestion and mild pulm edema. Patients pedal edema remained +2, but noted to have progressed to his thighs and abdomen. O2 was titrated to keep > 90. He was given Zaroxoly 5mg with minimal result. Patient was given his morning dose of Lopressor and his HR declined to 110-115, but his SBP also dropped to 80. Pt continued to deny any symptoms to include chest discomforts or palpitations. Labs reviewed show Troponin as negative. BNP 790, slightly elevated from previous draw of 680 a few weeks ago. Patient being transferred to [place] for further evaluation and treatment by Cardiology due to his acute cardiac changes. Discharge discussed with: patient Time spent discussing smoking cessation with patient: 3 to 10 minutes - Time Spent with Patient Total time spent providing and/or coordinating discharge services: Less than 30 minutes - Discharge Medications Home Medications: Aspirin 81 mg PO DAILY #0 03/08/17 [History] Calcium Carbonate [Calcium] 600 mg PO DAILY 03/08/17 [History] Cholecalciferol (D-3) [Vitamin D] 5,000 unit PO SA #0 03/08/17 [History] Ferrous Sulfate 325 mg PO DAILY 03/08/17 [History] Folic Acid 1 mg PO DAILY 03/08/17 [History] Methotrexate [Otrexup] 7.5 mg PO WE 03/08/17 [History] Mv-Mn/FA/Vit K/Lycop/Lut/Coq10 [Daily Multivitamin Capsule] 1 tab PO DAILY #0 [History] Vitamin B Complex [B Complex] 1 tab PO DAILY #0 03/08/17 [History] Warfarin [Coumadin] 1 mg PO TUSA #0 03/08/17 [History] sulfaSALAzine [Sulfasalazine] 500 mg PO BID tablet 03/09/17 [Rx] Melatonin [Melatin] 9 mg PO HS PRN 06/02/17 [History] Warfarin [Coumadin] 2 mg PO SUMOWETHFR 06/02/17 [History] traZODone [TraZODone] 50 - 100 mg PO HS PRN 06/02/17 [History] Acetaminophen [Tylenol] 650 mg PO Q6HR PRN tablet 06/04/17 [Rx] GuaiFENesin ER [Mucinex] 600 mg PO BID PRN tbbp.12hr 06/04/17 [Rx] Ipratropium/Albuterol Neb [Duoneb] 3 ml IH [id number] inhsol 06/04/17 [Rx] Amiodarone [Cordarone] 200 mg PO DAILY 09/11/17 [History] Atorvastatin [Lipitor] 40 mg PO HS 09/11/17 [History] Furosemide [Lasix] 40 mg PO BID 09/11/17 [History] Gabapentin [Neurontin] 200 mg PO HS 09/11/17 [History] Potassium Chloride [K-Tab ER] 40 meq PO BID 09/11/17 [History] Metoprolol Tartrate 75 mg PO BID 30 Days #60 tablet 09/20/17 [Rx] Allergies/Adverse Reactions: 3 Allergy/AdvReac Type Severity Reaction Status Date / Time sulfamethoxazole AdvReac Itching Verified 09/11/17 11:35 [From Bactrim] trimethoprim [From Bactrim] AdvReac Itching Verified 09/11/17 11:35 Date of admission: 09/20/17 15:43 Primary care physician: Je Dutton MD Consults: 09/20/17 18:18 Consult to Occupational Therapy [CONS] DAILY Comment: Evaluate, develop and implement POC Reason for Consult: deconditioning after mulitple falls. Does patient have active BEDREST order?: No Is patient medically & hemodynamically stable?: Yes Patient assessed for mobility or mobilized this visit?: Yes Consult to Physical Medicine/Rehab [CONS] Routine Reason for Consult: deconditioning after mulitple falls. Call Completed: Yes Consult to Physical Therapy [CONS] Routine Comment: Evaluate, develop and implement POC Reason for Consult: deconditioning after mulitple falls. Does patient have active BEDREST order?: No Is patient medically & hemodynamically stable?: Yes Patient assessed for mobility or mobilized this visit?: Yes Consult to Recreational Therapy [CONS] Routine Comment: Evaluate, develop and implement POC Consult to Executive Assistant To General Counsel [CONS] Routine Reason for SW Consult: d/c planning 09/21/17 08:10 Consult to Physical Therapy [CONS] Routine Comment: Evaluate, develop and implement POC Reason for Consult: s/p cardioversion Does patient have active BEDREST order?: No Is patient medically & hemodynamically stable?: Yes Patient assessed for mobility or mobilized this visit?: Yes Discharging clinician: Rex Ludwig - Constitutional Vitals: Temp Pulse Resp BP Pulse Ox 98.4 F 114 20 75/54 88 09/28/17 06:57 09/28/17 09:24 09/28/17 06:57 09/28/17 09:24 09/28/17 09:24 General appearance: Present: cooperative, A&O X 3, pleasant, obese, answers questions appropriately - Head Head exam: Present: atraumatic, normocephalic - Eye Eye exam: Present: PERRL, conjuntiva pink, sclera anicteric Pupils: Present: PERRL - Neck Neck exam general surgery: Present: supple, trachea midline. Absent: lymphadenopathy - Respiratory Respiratory exam: Present: CTAB, rales. Absent: accessory muscle use, rhonchi, wheezes Additional comments: Fine posterior basilar rales heard, otherwise CTA. Respiratory effort appears relaxed. - Cardiovascular Cardiovascular exam: Present: irregular rhythm, RRR, +S1, +S2. Absent: diastolic murmur, gallop, rubs, systolic murmur Additional comments: HR remains irreg at >110 bpm. CM shows atrial fibrillation at 110-120 with no ventricular ectopy. Moderate 2+ edema noted to bilateral leg/thigh and to his lower abdomen. - GI/Abdominal GI/Abdominal exam: Present: normal bowel sounds, soft, no peritoneal signs. Absent: distended, tenderness - Extremities Exam Extremities exam: Present: warm, radial pulses palpable and symmetrical. Absent : calf tenderness, cyanotic, pedal edema Additional comments: +2 edema to the bilateral legs/thighs. Erythema to the right lower leg. - Neurological Exam Neurological exam: Present: CN II-XII intact, oriented X3, no focal deficits. Absent: pronater drift, facial droop, speech deficit - Skin Skin exam: Present: dry, intact - Patient Status Disposition: Transfer Intermediate Care Fac Condition: Fair Overall status at discharge: patient is not back to baseline - Discharge Instructions Follow Up With: Je Dutton MD [Primary Care Provider] - - Diet and Activity Activity: as per physical therapy Diet: low fat, low cholesterol, low salt diet
[2017-09-28 11:19] VITALS: BP 92/51
--- NOTE | 2017-09-29 12:21 | Electrocardiograph Report ---
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
--- NOTE | 2017-09-29 18:58 | Electrocardiograph Report ---
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
== END 2017-09-28 13:00 | DRG 945 ==
LOC: INPGRE 09-20 15:43